=== PATIENT | female | born 1990 | race Asian ===

== ENCOUNTER 2016-07-08 05:34 | Inpatient (IN) | payer SELFPAY ==
[~2016-07-08] VITALS: Ht 172.7 cm; Wt 74.1 kg
[2016-07-08] VITALS (33 sets, daily range): BP systolic 102–127; BP diastolic 54–74; PULSE 62–96; TEMP 97.7–100
[~2016-07-08 05:34] MED LIST: BIRTH CONTROL PO
[2016-07-08 07:04] LABS: BASO % 0.3 % (0.0-2.0); EOS % 0.2 % (0-4.0); GRAN # 8.2 (1.4-6.5); GRAN % 80.9 % (42.2-75.2); LYMPH # 1.3 (1.2-3.4); LYMPH % 13.2 % (20.0-51.0); MEAN CELL VOLUME 84 fl (80.0-100.0); MEAN CORPUSCULAR HGB CONC 33 g/dl (33.0-37.0); MEAN PLATELET VOLUME 10.9 fl (7.4-10.4); MONO # 0.5 (0.1-0.6); MONO % 4.9 % (1.7-9.3); PLATELET COUNT 226 K/mm3 (130-400); RED BLOOD COUNT 4.26 M/mm3 (4.10-5.30); REDCELL DISTRIBUTION WIDTH-CV 13.7 % (11.5-14.5); WHITE BLOOD COUNT 10.2 K/mm3 (4.8-10.8)
[2016-07-08 07:05] LABS: HEMATOCRIT 35.6 % (37.0-47.0); HEMOGLOBIN 11.9 g/dl (12.5-16.0); MEAN CORPUSCULAR HEMOGLOBIN 28 pg (27.0-31.0)
[2016-07-09 07:30] LABS: HEMATOCRIT 32.4 % (37.0-47.0)
[2016-07-09 08:33] VITALS: BP 113/67; PULSE 85; TEMP 98.9
[2016-07-09 15:18] VITALS: BP 104/62; PULSE 67; TEMP 98.1
[2016-07-09 20:15] VITALS: BP 117/74; PULSE 69; TEMP 98.6
[2016-07-10] MEDS ORDERED: MOTRIN 600600 MG/TAB PO (08:58)
[2016-07-10] MEDS ORDERED: PERCOCET 325 MG1 TA2 PO (08:58)
[2016-07-10 09:00] VITALS: BP 119/76; PULSE 81; TEMP 98.2
== END 2016-07-10 11:25 | disposition home or self-care (01) | DRG 775 ==
LOC: LDRO 05:34 → LDR 05:45 → OB 05:45
PROVIDERS: Obstetrics & Gynecology
PROC: 10E0XZZ Delivery of Products of Conception, External Approach (ICD-10-PCS; principal; 2016-07-08)
PROC: 0KQM0ZZ Repair Perineum Muscle, Open Approach (ICD-10-PCS; 2016-07-08)
PROC: 0UQMXZZ Repair Vulva, External Approach (ICD-10-PCS; 2016-07-08)
DX: O70.1 Second degree perineal laceration during delivery (principal); Z37.0 Single live birth; O71.82 Other specified trauma to perineum and vulva; Z3A.38 38 weeks gestation of pregnancy
CPT/HCPCS: J2590; J7120